=== PATIENT | female | born 2000 | race Caucasian/White ===

== ENCOUNTER 2025-03-14 11:05 | Outpatient (CLI) | payer BC, OTHER | END 2025-03-14 11:06 | disposition home or self-care (01) | LOC: CSHSLEEP 11:05 | PROVIDERS: ATTEND Internal Medicine Critical Care Medicine | DX: G47.33 Obstructive sleep apnea (adult) (pediatric) (principal); R53.83 Other fatigue; R06.83 Snoring | CPT/HCPCS: 95800 ==